=== PATIENT | male | born 1940 | race Caucasian/White ===

== ENCOUNTER 2019-07-15 22:22 | Emergency (ER) | payer OTHER ==
[~2019-07-15] VITALS: Ht 162.6 cm; Wt 85.0 kg
--- NOTE | 2019-07-15 22:26 | ERD ---
ER Documentation Chief Complaint Chief Complaint Head numbness HPI The patient is a 78-year-old male, presenting to the ER bilateral leg pain for the last couple days, worse today, more on the right than the left. According to son, he is also somewhat confused per EMS. He is a very poor historian, denies fever, nasal congestion, cough, neck pain, chest pain, dyspnea, abdominal pain, vomiting, dizzy, diarrhea. He does not smoke nor drink Past medical history: Diabetes mellitus, CKD Past surgical history: None ROS All systems reviewed and are negative except as per history of present illness. Allergies Allergies: Coded Allergies: No Known Allergy (Verified Allergy, Mild, 07/11/09) PMhx/Soc History of Surgery: No Anesthesia Reaction: No Hx Neurological Disorder: No Hx Respiratory Disorders: No Hx Cardiac Disorders: No Hx Psychiatric Problems: No Hx Miscellaneous Medical Probl: No Hx Alcohol Use: No Hx Substance Use: No Hx Tobacco Use: No Physical Exam Vitals Vital Signs Date Temp Pulse Resp B/P (MAP) Pulse Ox O2 O2 Flow FiO2 Time Delivery Rate 07/16/19 99.6 84 17 106/49 98 Room Air 02:20 (68) 07/16/19 100.1 91 20 122/54 96 Room Air 01:14 (76) 07/16/19 100.4 00:10 07/15/19 97 20 99 21 23:58 07/15/19 99.1 23:06 07/15/19 102.4 97 19 155/69 96 22:31 (97) Physical Exam Const: No acute distress. Head: Atraumatic. Eyes: Normal Conjunctiva. ENT: Normal External Ears, Nose and Mouth. Neck: Full range of motion. No meningismus. Resp: Clear to auscultation bilaterally. Cardio: Regular rate and rhythm. Abd: Soft, non distended, normal bowel sounds, non tender. Skin: No petechiae or rashes. Back: No midline or flank tenderness. Ext: No cyanosis, or edema. Neur: Awake and alert. No focal deficit. Psych: Limited due to his condition,. Result Diagram: 07/15/19223607/15/192236 Results 24 hrs Laboratory Tests Test 07/15/19 22:37 07/15/19 22:40 07/16/19 00:24 07/16/19 01:19 White Blood Count 16.8 10^3/ul Red Blood Count 3.50 10^6/ul Hemoglobin 10.1 g/dl Hematocrit 31.6 % Mean Corpuscular 90.3 fl Volume Mean Corpuscular 28.9 pg Hemoglobin Mean Corpuscular 32.0 g/dl Hemoglobin Concent Red Cell 13.7 % Distribution Width Platelet Count 217 10^3/UL Mean Platelet 10.6 fl Volume Immature 0.700 % Granulocytes % Neutrophils % 86.5 % Lymphocytes % 5.6 % Monocytes % 6.4 % Eosinophils % 0.6 % Basophils % 0.2 % Nucleated Red Blood 0.0 /100WBC Cells % Immature 0.120 10^3/ul Granulocytes # Neutrophils # 14.5 10^3/ul Lymphocytes # 1.0 10^3/ul Monocytes # 1.1 10^3/ul Eosinophils # 0.1 10^3/ul Basophils # 0.0 10^3/ul Nucleated Red Blood 0.0 10^3/ul Cells # Prothrombin Time 13.5 Sec Prothrombin Time 1.1 Ratio INR International 1.02 Normalized Ratio Activated 25.6 Sec Partial Thromboplas t Time Sodium Level 141 mmol/L Potassium Level 5.6 mmol/L Chloride Level 107 mmol/L Carbon Dioxide 23 mmol/L Level Anion Gap 11 Blood Urea Nitrogen 39 mg/dl Creatinine 2.64 mg/dl Est Glomerular mL/min Filtrat Rate mL/min Glucose Level 221 mg/dl Calcium Level 9.6 mg/dl Total Bilirubin 0.5 mg/dl Direct Bilirubin 0.00 mg/dl Indirect Bilirubin 0.5 mg/dl Aspartate Amino 23 IU/L Transf (AST/SGOT) Alanine 23 IU/L Aminotransferase (A LT/SGPT) Alkaline 52 IU/L Phosphatase Troponin I < 0.012 ng/ml Total Protein 7.9 g/dl Albumin 4.4 g/dl Globulin 3.50 g/dl Albumin/Globulin 1.25 Ratio Ethyl Alcohol Level < 10.0 mg/dl POC Venous Lactate 1.4 mmol/L Lactic Acid Level 1.4 mmol/L Bedside Glucose 173 mg/dL Current Medications Medications Dose Sig/Drew Start Time Status Last (Trade) Ordered Route PRN Stop Time Admin Dose Reason Admin 650 mg ONCE ONCE 07/15/19 DC 07/15/19 Acetaminophen PO 23:00 23:06 (Tylenol 07/15/19 23:01 Tab) Vancomycin 250 ml @ ONCE ONCE 07/15/19 DC 07/15/19 HCl 125 mls/hr IVPB 23:30 23:30 07/16/19 01:29 Piperacillin 50 ml @ ONCE ONCE 07/15/19 DC 07/15/19 Sod/ 100 mls/hr IVPB 23:30 23:55 Tazobactam 07/15/19 23:59 Sod Dextrose 50 ml ONCE ONCE 07/16/19 DC (D50w IV 00:00 Syringe) 07/16/19 00:01 Insulin 5 unit ONCE STAT 07/15/19 DC 07/16/19 Human IVP 23:44 00:04 Regular 07/15/19 23:52 (Humulin R) Dextrose ONCE PRN 07/16/19 (D50w IV DECREASED 00:00 Syringe) GLUCOSE 07/17/19 00:00 Albuterol 5 mg ONCE ONCE 07/15/19 DC 07/15/19 (Proventil HHN 23:44 23:57 0.083% (Neb)) 07/15/19 23:52 Procedures/[place] [address] Radiology Main Line: [phone] DIAGNOSTIC IMAGING REPORT Patient: EDINSON CORRIGAN : 1940 Age: 78 Sex: M MR #: [id number] DOS: 07/15/19 2259 Ordering MD: ALBERT LACEY MD Location: E/R Room/Bed: PROCEDURE: US Lower extremity Venous. CLINICAL INDICATION: Bilateral lower extremity edema TECHNIQUE: Multiple sonographic images of the bilateral lower extremity deep venous system was obtained utilizing grayscale, color-flow, compressive sonography and doppler imaging with augmentation. The images were reviewed on a PACS workstation. COMPARISON: None. FINDINGS: There is normal compressibility and flow within the right common femoral, femoral , posterior tibial and popliteal veins. There is normal compressibility and flow within the left common femoral, femoral , posterior tibial and popliteal veins. RPTAT: AA IMPRESSION: No sonographic evidence for deep venous thrombosis. .Uriah Anaya MD, MD Date Time Electronically viewed and signed by .Uriah Anaya MD, MD on 07/16/2019 00:03 .S/ CC: ALBERT LACEY MD [id number] [place] [address] Radiology Main Line: [phone] DIAGNOSTIC IMAGING REPORT Patient: EDINSON CORRIGAN : 1940 Age: 78 Sex: M MR #: [id number] DOS: 07/15/19 2252 Ordering MD: ALBERT LACEY MD Location: E/R Room/Bed: PROCEDURE: CT Brain without contrast. CLINICAL INDICATION: Altered level of consciousness TECHNIQUE: A CT of the brain was performed on a multidetector CT scanner utilizing axial imaging from the skull base through the vertex without IV contrast. Multiplanar reformatted images were made. Images were reviewed on a PACS workstation. The CTDIvol is 40 mGy and the DLP is 714 mGycm. DICOM images are available. One or more of the following dose reduction techniques were utilized: 1.) Automated exposure control 2.) Adjustment of the mA +/- kV according to patient's size 3.) Use of iterative reconstruction technique. COMPARISON: None FINDINGS: There is no intracranial hemorrhage, mass effect, or midline shift. No extra- axial fluid collection is seen. There is mild to moderate diffuse cerebral volume loss with sulcal and ventricular dilatation. Ventricles are of normal configuration. Periventricular white matter disease is present in both cerebral hemispheres with no associated mass effect. the aguilar white matter differentiation appears well-preserved. The visualized paranasal sinuses and osseous structures are grossly unremarkable. IMPRESSION: Atrophy with white matter disease compatible with chronic small vessel ischemia. No mass or evidence of acute transcortical infarct. .Jack Hand MD, MD Date Time Electronically viewed and signed by .Jack Hand MD, on 07/15/2019 23:48 .A/ CC: ALBERT LACEY MD [id number] [place] [address] Radiology Main Line: [phone] DIAGNOSTIC IMAGING REPORT Patient: EDINSON CORRIGAN : 1940 Age: 78 Sex: M MR #: [id number] DOS: 07/15/192226 Ordering MD: ALBERT LACEY MD Location: E/R Room/Bed: PROCEDURE: XR Chest. CLINICAL INDICATION: Sepsis. TECHNIQUE: Single frontal view. COMPARISON: July 10, 2009. FINDINGS: The lungs are clear. The heart size is normal. There is calcification in the aorta consistent with atherosclerosis. There is no pleural effusion. There is no pneumothorax. IMPRESSION: 1. Atherosclerosis. 2. Otherwise unremarkable chest radiograph. RPTAT: QQ .Rick Salinas MD, MD Date Time Electronically viewed and signed by .Rick Salinas MD, MD on 07/15/2019 23:14 .R/ CC: ALBERT LACEY MD [id number] EKG: Read by emergency physician Rate/Rhythm: Normal Sinus Rhythm 97 beats/min QRS, ST, T-waves: No ST elevation, no T inversion, LVH, artifacts, inferior lateral ST and T abnormality Impression: Abnormal EKG UA/UDS Pending MEDICAL MAKING DECISION: The patient is a 78-year-old male, presenting with acute encephalopathy, acute bilateral lower extremity cellulitis, acute hyperkalemia, acute on chronic kidney disease He was treated with Tylenol 650 mg p.o. for fever, vancomycin IV and Zosyn IV acute bilateral cellulitis, 1 amp D50 IV, 5 unit of regular insulin IV, albuterol 5 mg nebulizer for acute hyperkalemia with good response. The differential diagnoses considered include but are not limited to septic encephalopathy, metabolic encephalopathy, UTI, pneumonia, TIA Departure Diagnosis: Primary Impression: Bilateral lower leg cellulitis Additional Impressions: Encephalopathy acute Hyperkalemia Acute kidney injury superimposed on chronic kidney disease Anemia Condition: Stable Comments I discussed the findings with the patient. I notified the patient with Dr. Varghese at 2am from [place], who was made aware of the lab, the treatment, the patient condition. The patient is transferred via ambulance to [place] Disclaimer: Inadvertent spelling and grammatical errors are likely due to EHR/dictation software use and do not reflect on the overall quality of patient care. Also, please note that the electronic time recorded on this note does not necessarily reflect the actual time of the patient encounter. ALBERT LACEY MD Jul 15, 2019 22:26
[2019-07-15 22:31] VITALS: Ht 162.6 cm; Wt 85.0 kg
[2019-07-15] MEDS ORDERED: ACETAMINOPHEN 325 MG TAB PO ONE (23:00)
[2019-07-15] MEDS ORDERED: VANCOMYCIN 1 GM (PMX) 250 ML IVPB ONE (23:30)
[2019-07-15] MEDS ORDERED: PIPER-TAZO 2.25 GM (PMX) 50 ML IVPB ONE (23:30)
[2019-07-15] MEDS ORDERED: ALBUTEROL 0.083% (NEB) 2.5 MG/3 ML AMP HHN ONE (23:44)
[2019-07-15] MEDS ORDERED: INSULIN REGULAR, HUMAN 100 UNIT/1 ML 3ML VIAL IVP STA (23:44)
[2019-07-16] MEDS ORDERED: DEXTROSE 50% 50 ML SYRINGE IV PRN
[2019-07-16] MEDS ORDERED: DEXTROSE 50% 50 ML SYRINGE IV ONE
[2019-07-16 02:20] VITALS: PULSE 84
[2019-07-16 04:11] VITALS: BP 111/50; RESP 22
== END 2019-07-16 04:30 | disposition short-term general hospital (02) ==
LOC: E/R 22:22
DX: L03.115 Cellulitis of right lower limb (principal); L03.116 Cellulitis of left lower limb; G93.40 Encephalopathy, unspecified; E87.5 Hyperkalemia; N17.9 Acute kidney failure, unspecified; D64.9 Anemia, unspecified; E11.22 Type 2 diabetes mellitus with diabetic chronic kidney disease; N18.9 Chronic kidney disease, unspecified
CPT/HCPCS: 70450; 71045; 80053; 80307; 82962; 83605; 84484; 85025; 85610; 85730; 87040; 93005; 93970; 94664; J1815; J2543; J3370; 36415; 96365; 96375